=== PATIENT | male | born 1955 | race Caucasian/White ===

== ENCOUNTER 2017-01-23 11:53 | Emergency (ER) | payer BC ==
--- NOTE | ~2017-01-23 | ER ---
PATIENT'S NAME: ISA PARTIDA [facility] AGE: 61 Y [address] ROOM: [place] [id number] LOCATION: [facility] ADMIT DATE: 01/23/2017 ER/Outpatient Report DISCHARGE DATE: FAMILY PHYSICIAN: Emmanuel Piña MD ATTENDING PHYSICIAN: César Avila Time of Arrival: 1153. Time of Evaluation: 1155. CHIEF COMPLAINT: Chest fluttering. HISTORY OF PRESENT ILLNESS: The patient is a 61-year-old male, who presents to the emergency department today with chief complaint of chest fluttering. He reports this started about 3-4 hours prior to arrival. It has been off and on for about 10 days. He reports he did get sweaty with it as well. It does radiate down into left arm and he did have some numbness into his left fingers. Denies any nausea or vomiting. No shortness of breath. No weakness. Pain is gone at this time, 0/10 in severity. PAST MEDICAL HISTORY: Diabetes mellitus type 2, osteomyelitis with history of metatarsal amputation, obesity, coronary artery disease with stenting approximately six years ago. PAST SURGICAL HISTORY: Heart stents, metatarsal amputation. SOCIAL HISTORY: The patient smokes a pack per day on and off. Reports he quit six years ago. Reports he quit drinking 16 years ago. Denies any illicit drug use. ALLERGIES: PENICILLIN, WHICH CAUSES RASH. MEDICATIONS: Please see list. PRIMARY CARE DOCTOR: Emmanuel Piña MD REVIEW OF SYSTEMS: All systems are reviewed by myself and are negative with the exception of those discussed in HPI and past medical history. PATIENT'S NAME: ISA PARTIDA [facility] AGE: 61 Y [address] ROOM: [place] [id number] LOCATION: [facility] ADMIT DATE: 01/23/2017 ER/Outpatient Report DISCHARGE DATE: FAMILY PHYSICIAN: Emmanuel Piña MD ATTENDING PHYSICIAN: César Avila PHYSICAL EXAMINATION: VITAL SIGNS: Weight 125.4 kg. Blood pressure 156/77, pulse 81, respiratory rate 16, temperature 98.9, oxygen saturation 97% on room air. GENERAL: The patient is a 61-year-old male, who appears of stated age in no acute distress at this time. HEENT: Normocephalic, atraumatic. Pupils are equal, round, and reactive to light. NECK: Supple. There is no nuchal rigidity. CARDIOVASCULAR: Regular rate and rhythm. No murmurs, rubs, or gallops. LUNGS: Clear to auscultation bilaterally. No wheezes, rales, or rhonchi. ABDOMEN: Soft, nontender, and nondistended. No rebound, rigidity, or guarding. MUSCULOSKELETAL: The patient moves all 4 extremities. SKIN: Warm and dry. No rashes or lesions are noted. LABORATORY DATA AND X-RAYS: Labs and x-rays are obtained. EKG is obtained, is interpreted by myself at 1202. It does show sinus rhythm with a rate of 83, normal axis, normal interval. No ST elevation, ST depression, or T-wave inversions. Chest x-ray shows no acute process. CBC is unremarkable. CMP unremarkable except for chloride of 111, CO2 of 20, creatinine 1.6, alkaline phosphatase is normal. AST is 50. ALT is normal. Magnesium is 1.7. ProBNP is normal. Coag's are normal. CK is 879. CK-MB is 12.2. Troponin is less than 0.04. Chest x-ray shows no acute process. CK 796. CK-MB is 10.6. Troponin less than 0.04. IMPRESSION: 1. Chest pain, unclear etiology. 2. Elevated CK-MB. 3. Left against medical advice. 4. Initial visit. EMERGENCY DEPARTMENT COURSE: The patient is brought back to the examination room. Seen and evaluated by myself. IV is established. Laboratory analysis and imaging are obtained as described above. The patient is given 4 baby aspirin orally. His pain is resolved at this time. I have discussed the results with the patient. The patient's CK-MB is elevated. He has a history of coronary artery disease requiring stenting. He has not had any provocative testing of six years. With his chest fluttering, I have recommended admission to the hospital for further evaluation, treatment, and management. The patient refuses. He does not wish to come to the hospital. I have discussed with him the risks and benefits of not being admitted including this potentially being his heart that is a heart attack, which could potentially cause severe disability or even . He reports he understands these risks. His questions are answered. He still wishes to leave against medical advice. The patient certainly does PATIENT'S NAME: ISA PARTIDA [facility] AGE: 61 Y [address] ROOM: [place] [id number] LOCATION: [facility] ADMIT DATE: 01/23/2017 ER/Outpatient Report DISCHARGE DATE: FAMILY PHYSICIAN: Emmanuel Piña MD ATTENDING PHYSICIAN: César Avila appear to have medical capacity to make his own decisions and I do feel he understands the risks and benefits involved that I have discussed with him. I would like him to follow up with his primary care doctor as soon as possible, he sees Dr. Piña. I have contacted Dr. Mercedes, who is on-call for the patient's primary care doctor and discussed the case with her. She will make a note that they will contact the patient on Wednesday to attempt to set up further testing and evaluation. I have discussed with the patient return to care instructions including worsening symptoms or any other concerns to return to the emergency department as soon as possible. The patient is agreeable. DISPOSITION: The patient is discharged to home against medical advice in stable condition. DO WILEY NAILS/carlosl /[id number] d: 01/23/17 215 t: 01/24/17 0822, OUTPATIENT REPORT
[~2017-01-23 11:53] MED LIST: ASPIR 8181 MG PO; CLINDESSE5 GM; COZAAR100 MG PO; FEOSOL325 MG; FLORASTOR250 MG PO; GLUCOPHAGE1000 MG PO; HUMALOG MI100 UNIT/5; HUMALOG MI100 UNIT/5 SUB-Q; HUMALOG100 UNIT/1 SUB-Q; HYDROCHLOROTHIA25 MG PO; INVANZ1 G1 IV; KEFLEX500 MG PO; LASIX20 MG; LIPITOR40 MG; LOPRESSOR25 MG PO; MINOCIN100 M2 PO; NEURONTIN100 MG; NORVASC5 MG PO; PAIN RELIEF650 MG PO; PERCOCET 10-321 EACH; PERCOCET 5-3251 EACH PO; PRAVACHOL40 MG PO; PROZAC20 MG PO; THERAGRAN-M1 TAB PO; TOPROL XL 5050 MG PO; TOPROL XL25 MG
[2017-01-23 12:15] LABS: BASOPHIL % 0.5 %; EOSINOPHIL # 0.1 K/uL (0.0-0.5); EOSINOPHIL % 1.7 %; HEMATOCRIT 33.6 % (37.0-53.0); HEMOGLOBIN 11.5 g/dL (11.0-16.0); IMMATURE GRANULOCYTE % 0.4 %; LYMPHOCYTE # 2.3 K/uL (0.8-4.0); LYMPHOCYTE % 27.5 %; MCH 29.8 pg (27.0-34.0); MCHC 34.2 gm/dL (32.0-36.5); MONOCYTE # 0.6 K/uL (0.0-1.0); MONOCYTE % 7.8 %; MPV 9.5 fl (9.4-12.4); NEUTROPHIL # (ANC) 5.1 K/uL (1.4-9.0); NEUTROPHIL % 62.1 %; NRBC % 0 /100WBC (0-0.00); PLATELET COUNT 242 K/uL (150-450); RBC 3.86 M/uL (3.50-5.50); RDW-CV 13.9 % (11.9-14.6); WBC 8.2 K/uL (4.0-11.0)
[2017-01-23 12:27] LABS: INR - (THERAPEUTIC) 1.07 (0.92-1.07); PROTIME 11.2 SECONDS (9.8-11.4); PTT 29 SECONDS (25-32)
[2017-01-23 12:36] LABS: ALK PHOS 77 IU/L (33-138); ALT 61 IU/L (12-78); ANION GAP 14.6 (10.0-19.0); AST 50 IU/L (10-40); BLOOD UREA NITROGEN 24 mg/dL (6-24); CALCIUM 9.1 mg/dL (8.5-10.5); CHLORIDE 111 mMol/L (96-110); CO2 20 mMol/L (22-32); CPK 879 IU/L (35-332); CREATININE 1.6 mg/dL (0.6-1.3); MAGNESIUM 1.7 mg/dL (1.8-2.6); POTASSIUM 4.6 mMol/L (3.7-5.1); SODIUM 141 mMol/L (135-145); TOTAL BILIRUBIN 0.4 mg/dL (0.0-1.5)
[2017-01-23 14:36] LABS: CPK 796 IU/L (35-332)
== END 2017-01-23 15:00 | disposition disaster alternative care site (69) ==
LOC: GMED 11:53
PROVIDERS: Emergency Medicine
DX: R07.9 Chest pain, unspecified (principal); R74.8 Abnormal levels of other serum enzymes; E11.9 Type 2 diabetes mellitus without complications; I25.10 Atherosclerotic heart disease of native coronary artery without angina pectoris; M86.9 Osteomyelitis, unspecified; E66.9 Obesity, unspecified; F17.210 Nicotine dependence, cigarettes, uncomplicated; Z88.0 Allergy status to penicillin; Z95.828 Presence of other vascular implants and grafts; Z79.4 Long term (current) use of insulin; Z79.84 Long term (current) use of oral hypoglycemic drugs; Z79.899 Other long term (current) drug therapy